=== PATIENT | male | born 1950 | race Caucasian/White ===

== ENCOUNTER → 2021-03-22 | Day surgery (SDC) | payer MEDICARE, OTHER ==
[2021-03-20 14:36] LABS: BASOPHILS % 0.7 % (0.0-1.0); EOSINOPHILS # (AUTO) 0.1 (0.0-0.4); EOSINOPHILS % 1.8 % (0.0-6.0); HEMATOCRIT 43.3 % (38.2-49.6); HEMOGLOBIN 14.8 g/dL (14.0-18.0); LYMPHOCYTES # (AUTO) 1.2 (1.0-3.2); LYMPHOCYTES % 20.9 % (18.0-39.1); MEAN CORPUSCULAR HEMOGLOBIN 31.5 pg (28-32); MEAN CORPUSCULAR HGB CONC 34.2 g/dL (31-35); MEAN CORPUSCULAR VOLUME 92.1 fL (81-99); MONOCYTES # (AUTO) 0.4 (0.2-0.8); MONOCYTES % 7.2 % (4.4-11.3); NEUTROPHILS # (AUTO) 3.9 (2.1-6.9); NEUTROPHILS % 68.9 % (38.7-80.0); PLATELET COUNT 204 x10e3/uL (140-360)
[~2021-03-22] MED LIST: ALLEGRA ALLERGY60 MG PO; BUSPIRONE HCL10 MG PO; CLOPIDOGREL BIS75 MG PO; DIOVAN160 MG PO; FENTANYL CITRATE/PF 100MCG/2 ML INJ ONE; GEMFIBROZIL600 MG PO; METOPROLOL SUCC25 MG PO; TERAZOSIN HCL1 MG PO; TRAZODONE HCL50 MG PO; VITAMIN D350 MCG PO; Z BUPROPION HCL PO; Z POTASSIUM CHLOR PO; Z.0.AMLODIPINE BESY1 PO; Z.0.BENAZEPRIL HCL20 PO; Z.0.CIPRO500 MG PO; Z.0.COZAAR100 MG PO; Z.0.HYDROCHLOROTHIA2 PO; Z.0.XANAX0.5 MG PO; Z.0.ZOLPIDEM TARTRAT PO
[2021-03-22 16:40] VITALS: BP 140/89
[2021-03-23 07:53] LABS: WBC,FECAL (FECAL LACTOFERRIN) NEGATIVE (NEGATIVE)
[2021-03-23 15:15] LABS: C DIFFICILE TOXIN A&B AMP PROB NEGATIVE (NEGATIVE)
== END | disposition home or self-care (01) ==
LOC: OR 11:46
PROVIDERS: ATTEND Internal Medicine Gastroenterology
DX: K59.09 Other constipation (principal); D12.0 Benign neoplasm of cecum; D12.3 Benign neoplasm of transverse colon; D12.4 Benign neoplasm of descending colon; D12.5 Benign neoplasm of sigmoid colon; K62.1 Rectal polyp; K64.8 Other hemorrhoids; I10 Essential (primary) hypertension; E78.5 Hyperlipidemia, unspecified; I45.10 Unspecified right bundle-branch block; N40.0 Benign prostatic hyperplasia without lower urinary tract symptoms; F41.9 Anxiety disorder, unspecified; Z01.810 Encounter for preprocedural cardiovascular examination; Z01.812 Encounter for preprocedural laboratory examination; Z20.822 Contact with and (suspected) exposure to COVID-19; Z79.02 Long term (current) use of antithrombotics/antiplatelets; Z68.29 Body mass index [BMI] 29.0-29.9, adult; Z86.73 Personal history of transient ischemic attack (TIA), and cerebral infarction without residual deficits; Z80.0 Family history of malignant neoplasm of digestive organs
CPT/HCPCS: 36415; 45380; 45384; 45385; 83630; 83993; 85025; 87045; 87177; 87328; 87493; 88305; 93005; J3010; U0002